=== PATIENT | female | born 1980 | race Caucasian/White ===

== ENCOUNTER → 2020-04-01 09:21 | Outpatient (CLI) | payer OTHER, SELFPAY ==
[2018-10-19 19:38] VITALS: BMI 36.7
== END ==
PROVIDERS: PCP Family Medicine; Referring Provider Nurse Practitioner Family; Visit Provider Nurse Practitioner Family
DX: R11.0 Nausea (principal); R10.84 Generalized abdominal pain
CPT/HCPCS: 87635; U0003